=== PATIENT | male | born 1980 | race Two or more races ===

== ENCOUNTER 2024-08-09 23:03 | Emergency (ER) | payer OTHER ==
[~2024-08-09] VITALS: Ht 167.6 cm; Wt 91.3 kg
[2024-08-10] MEDS ORDERED: CYCLOBENZAPRINE5 MG PO (00:49)
[2024-08-10 00:55] VITALS: PULSE 70; RESP 16; TEMP 98.1; O2SAT 96
== END 2024-08-10 00:58 | disposition home or self-care (01) ==
LOC: FSED 23:09
DX: G44.209 Tension-type headache, unspecified, not intractable (principal); S39.012A Strain of muscle, fascia and tendon of lower back, initial encounter; E11.9 Type 2 diabetes mellitus without complications
CPT/HCPCS: 36415; 70450; 80053; 80307; 81003; 82948; 85025; 99284